=== PATIENT | female | born 1965 | race Caucasian/White ===

== ENCOUNTER → 2021-10-25 | Outpatient (CLI) | payer MEDICARE, OTHER ==
[~2021-10-25] MED LIST: ATIVAN0.5 MG PO; GABAPENTIN300 MG PO; GLUCOPHAGE1000 MG PO; LO-DOSE ASPIRIN81 MG PO; VENLAFAXINE H37.5 M1 PO
[2021-10-25 10:25] LABS: HEMOGLOBIN 14.1 gm/dl (12.3-15.3); RED BLOOD COUNT 4.85 M/UL (4.00-5.10); WHITE BLOOD COUNT 7.5 K/UL (4.5-11.0)
[2021-10-25 10:49] LABS: BUN/CREATININE RATIO 17 (0-10)
== END ==
LOC: LAB 09:44
PROVIDERS: Family Medicine
DX: Z01.812 Encounter for preprocedural laboratory examination (principal); E11.9 Type 2 diabetes mellitus without complications
CPT/HCPCS: 36415; 80053; 80061; 83036; 85025